=== PATIENT | male | born 1990 | race Caucasian/White ===

== ENCOUNTER 2025-03-28 00:57 | Outpatient (CLI) | payer OTHER, SELFPAY ==
[2025-03-28 14:08] LABS: Cholesterol 269 mg/dL (<200); HDL Cholesterol 64 mg/dL (>or=40)
[2025-03-28 14:16] LABS: Hemoglobin A1C 4.9 % (<5.7)
== END 2025-03-28 00:58 | disposition home or self-care (01) ==
LOC: LOS 00:57
PROVIDERS: PCP Nurse Practitioner Family; Visit Provider Nurse Practitioner Family
DX: Z13.220 Encounter for screening for lipoid disorders (principal); Z13.1 Encounter for screening for diabetes mellitus
CPT/HCPCS: 36415; 80061; 83036